=== PATIENT | male | born 1995 | race Caucasian/White ===

== ENCOUNTER 2025-01-31 14:34 | Outpatient (OUT) | payer BC, SELFPAY ==
--- OUTSIDE RECORDS SUMMARY | 2025-01-31 14:42 | XMS_ITS | Clinical Summary ---
Author Organization [facility] Address [address] [place] [address] Care Team Providers Care Multimedia Instructional Designer Name Role Phone Unallocated, Camilla Provider Primary Care Provi jaquelin Social History Tobacco Use Types Packs/Day Years Used Date Smoking Tobacco: Never Assessed Sex and Gender Information Value Date Recorded Sex Assigned at Not on file Legal Sex Male 7:06 PM EDT Gender Identity Not on file Sexual Orientation Not on file Last Filed Vital Signs Vital Sign Reading Time Taken Comments Blood Pressure 143/89 10/03/2019 12:00 PM EDT Pulse - - Temperature - - Respiratory Rate - - Oxygen Saturation - - Inhaled Oxygen Concentration - - Weight 85.3 kg (188 lb) 10/03/2019 12:00 PM EDT Height 180.3 cm (5' 11 ) 10/03/2019 12:00 PM EDT Body Mass Index 26.22 10/03/2019 12:00 PM EDT Plan of Treatment Not on file Care Teams Multimedia Instructional Designer Relationship Specialty Start Date End Date Unallocated, Camilla ProviderMD [address] [place] [address] PCP - General Family Medicine 02/06/24
--- OUTSIDE RECORDS SUMMARY | 2025-01-31 14:42 | XMS_ITS | Clinical Summary ---
Author Organization [facility] Address [address] [place] [id number] Care Team Providers Care Spool Tender Name Role Phone Unavailable Primary Care Provider Unavailabl e Allergies No known active allergies Medications albuterol HFA (PROVENTIL HFA, VENTOLIN HFA) 90 mcg/actuation inhalerIndicati ons:Sinobronchi tis Inhale 2 Puffs as instructed every 4 hours as needed for wheezing/shortn ess of breath. 1 Each 3 Active benzonatate (TESSALON PERLES) 100 mg capsuleIndicati ons:Sinobronchi tis Take 1 capsule by mouth three times a day as needed. 21 capsule 3 Active Social History Tobacco Use Types Packs/Day Years Used Date Smoking Tobacco: Never Assessed Sex and Gender Information Value Date Recorded Sex Assigned at Not on file Legal Sex Male 7:10 PM EST Gender Identity Not on file Sexual Orientation Not on file Last Filed Vital Signs Vital Sign Reading Time Taken Comments Blood Pressure 146/78 04/11/2023 7:40 PM EST Pulse 95 04/11/2023 7:40 PM EST Temperature 36.6 C (97.9 F) 04/11/2023 7:40 PM EST Respiratory Rate 20 04/11/2023 7:40 PM EST Oxygen Saturation 98% 04/11/2023 7:40 PM EST Inhaled Oxygen Concentration - - Weight 111.2 kg (245 lb 1.6 oz) 04/11/2023 7:40 PM EST Height - - Body Mass Index - - Plan of Treatment Health Maintenance Due Date Last Done Comments Anxiety Screening 07/18/2015 Depression Screening 07/18/2015 HIV Screening 07/18/2015 Hepatitis C Screening 07/18/2015 Influenza Vaccine (#1) 2025 9, 01/28/2018, 02/24/2014, Additional history exists DTaP,Tdap,Td Vaccine (8 - Td or Tdap) 03/09/2029 03/09/2019, 12/17/2009, 12/20/2002, Additional history exists Hepatitis B Vaccine Completed 06/11/1998, 03/09/1998, 1997 HPV Vaccine Completed 02/16/2012, 02/12, 12/17/2009 Insurance [facility] PPO
--- NOTE | 2025-01-31 15:06 | XR_ITS ---
The [address] [address] Patient Name: BANG KERN MRN: [id number] date: 1995 Sex: M Assigned Patient Location: RAD Current Patient Location: [facility] Accession/Order Number: [id number] Exam Date: 01/31/2025 14:55 Report Date: 01/31/2025 19:40 At the request of: SUDARSHAN LORD DPLivia Procedure: XR foot NO min 3V 3 views of the right foot and 3 views of left foot INDICATION: Pain COMPARISON: No recent comparisons available FINDINGS: No fracture dislocation. Joint spaces preserved. Soft tissues unremarkable. No radiopaque foreign body or soft tissue gas. XR/XR foot NO min 3V IMPRESSION: Unremarkable x-rays of the bilateral feet. Impression dictated by: Nabeel Ochoa M.D. 01/31/2025 7:40 PM Dictation Location: [place] [address] Electronically authenticated by: [id number] Y Date: 01/31/2025 19:40
== END 2025-01-31 14:35 | disposition home or self-care (01) ==
PROVIDERS: Visit Provider Podiatrist Foot & Ankle Surgery
DX: M79.671 Pain in right foot (principal); M79.672 Pain in left foot
CPT/HCPCS: 73630